=== PATIENT | female | born 1980 | race Caucasian/White ===

== ENCOUNTER 2020-01-27 09:41 | Emergency (ER) | payer OTHER ==
[~2020-01-27] VITALS: Ht 157.5 cm; Wt 89.1 kg
[2020-01-27] MEDS ORDERED: ACET-2865 PO (09:44)
[2020-01-27 11:26] LABS: COVID AG,FIA SOURCE NASOPHARYNGEAL
[2020-01-27] MEDS ORDERED: ACETAMINOPHEN 500 MG TABLET PO ONE (11:45)
[2020-01-27 12:13] LABS: RAPID GROUP A STREP POSITIVE (NEGATIVE)
[2020-01-27 12:22] LABS: INFLUENZA TYPE A NEGATIVE FOR TYPE A (NEGATIVE); INFLUENZA TYPE B NEGATIVE FOR TYPE B (NEGATIVE)
[2020-01-27 13:30] VITALS: BP 101/62
== END 2020-01-27 14:05 | disposition home or self-care (01) ==
LOC: EMS 09:58
DX: J02.0 Streptococcal pharyngitis (principal); R07.89 Other chest pain; Z20.828 Contact with and (suspected) exposure to other viral communicable diseases
CPT/HCPCS: 71045; 87426; 87430; 87804; 99285; U0003